=== PATIENT | male | born 1960 | race Caucasian/White ===

== ENCOUNTER 2018-04-06 08:49 | Emergency (ER) | payer OTHER ==
[~2018-04-06] VITALS: Ht 182.9 cm; Wt 120.2 kg
[2018-04-07] MEDS ORDERED: PERCOCET 5-3251 EACH PO (13:39)
== END 2018-04-06 12:35 | disposition home or self-care (01) ==
LOC: ER 08:49
DX: N20.1 Calculus of ureter (principal)

== ENCOUNTER 2018-04-07 08:35 | Emergency (ER) | payer OTHER ==
[~2018-04-07] VITALS: Ht 188 cm; Wt 124.7 kg
[2018-04-07] MEDS ORDERED: PERCOCET 5-3251 EACH PO (13:39)
== END 2018-04-07 17:42 | disposition home or self-care (01) ==
LOC: ER 08:35
DX: R10.31 Right lower quadrant pain (principal)

== ENCOUNTER 2018-04-09 13:46 | Emergency (ER) | payer OTHER ==
[~2018-04-09] VITALS: Ht 188 cm; Wt 122.5 kg
[~2018-04-09 13:46] MED LIST: PERCOCET 5-3251 EACH PO
== END 2018-04-09 22:54 | disposition home or self-care (01) ==
LOC: ER 13:46
DX: N39.0 Urinary tract infection, site not specified (principal); R16.1 Splenomegaly, not elsewhere classified

== ENCOUNTER 2018-04-11 12:20 | Emergency (ER) | payer OTHER ==
[~2018-04-11] VITALS: Ht 182.9 cm; Wt 90.7 kg
== END 2018-04-11 19:57 | disposition home or self-care (01) ==
LOC: ER 12:20
DX: N20.1 Calculus of ureter (principal); K80.20 Calculus of gallbladder without cholecystitis without obstruction

== ENCOUNTER 2018-04-21 07:29 | Outpatient (CLI) | payer OTHER | END 2018-04-21 07:44 | disposition home or self-care (01) | LOC: LAB 07:29 | DX: N20.1 Calculus of ureter (principal) ==

== ENCOUNTER 2018-05-27 14:40 | Outpatient (CLI) | payer OTHER | END 2018-05-27 16:14 | disposition home or self-care (01) | LOC: LAB 14:40 | DX: N20.1 Calculus of ureter (principal) ==

== ENCOUNTER 2018-06-02 12:14 | Outpatient (CLI) | payer OTHER | END 2018-06-02 13:27 | disposition home or self-care (01) | LOC: LAB 12:14 | DX: N20.1 Calculus of ureter (principal) ==

== ENCOUNTER → 2018-07-08 | Outpatient (CLI) | payer OTHER | END | disposition home or self-care (01) | LOC: LAB 13:50 | DX: N39.0 Urinary tract infection, site not specified (principal) ==

== ENCOUNTER 2019-02-25 11:03 | Outpatient (CLI) | payer OTHER | END 2019-02-25 11:17 | disposition home or self-care (01) | LOC: LAB 11:03 | DX: N20.1 Calculus of ureter (principal); N20.0 Calculus of kidney ==

== ENCOUNTER → 2019-08-07 13:54 | Outpatient (CLI) | payer OTHER | END | disposition home or self-care (01) | LOC: LAB 13:54 | DX: K21.0 Gastro-esophageal reflux disease with esophagitis (principal) ==

== ENCOUNTER 2024-05-19 11:02 | Outpatient (CLI) | payer OTHER | END 2024-05-19 11:14 | disposition home or self-care (01) | LOC: SONOGRAMA 11:02 | PROVIDERS: ATTEND Urology | DX: N20.0 Calculus of kidney (principal) ==